=== PATIENT | male | born 1980 | race Caucasian/White ===

== ENCOUNTER 2022-03-04 14:47 | Emergency (ER) | payer BC, SELFPAY ==
[2022-03-04] VITALS (26 sets, daily range): BP systolic 108–133; BP diastolic 50–89; PULSE 54–99; RESP 14–25; TEMP 36.6; O2SAT 97–100
--- NOTE | 2022-03-04 14:47 | ECG_ITS ---
Measurements Intervals [place] Rate: 75 P: 16 RI: 143 QRS: 30 QRSD: 98 T: 51 QT: 401 QTc: 450 Interpretive Statements SINUS RHYTHM NONSPECIFIC T-WAVE ABNORMALITY NO PREVIOUS ECG AVAILABLE FOR COMPARISON Electronically Signed On 03-04-2022 16:53:46 CDT by Sera Hernandez M.D.
[2022-03-04 15:12] LABS: Basophils Absolute Auto 0.1 K/mm3 (0.0-0.1); Basophils Percent Auto 0.4 % (0.2-1.2); Eosinophils Absolute Auto 0.2 K/mm3 (0-0.3); Eosinophils Percent Auto 0.8 % (0-4.4); Hematocrit 54.4 % (42.0-52.0); Hemoglobin 18.2 g/dL (14.0-18.0); Immature Granulocyte Absolute 0.12 K/mm3 (0.00-0.031); Immature Granulocyte Percent A 0.7 % (0-0.5); Lymphocytes Absolute Auto 1.32 K/mm3 (0.9-3.2); Lymphocytes Percent Auto 7.2 % (18.3-44.2); Mean Corpuscular HGB Conc 33.5 g/dl (32-36); Mean Corpuscular Hemoglobin 30.9 pg (26-34); Mean Corpuscular Volume 92.4 fl (80-100); Mean Platelet Volume 10.3 fl (7.4-10.4); Monocytes Absolute Auto 1.4 K/mm3 (0.1-0.6); Monocytes Percent Auto 7.4 % (2.6-8.5); Neutrophils Absolute Auto 15.4 K/mm3 (1.3-6.7); Neutrophils Percent Auto 83.5 % (45.5-73.1); Platelet Count Result 257 k/mm3 (150-375); Red Blood Count 5.89 M/mm3 (4.6-6.20); Red Cell Distribution Width 12.3 % (11.5-14.5); White Blood Count 18.4 K/mm3 (4.5-10.0)
--- NOTE | 2022-03-04 15:13 | PC.NURSE ---
Pt noted to have approx 300 ml of emesis . New bag given to pt and given towel to wipe face. Sister remains at patients side.
[2022-03-04 15:21] LABS: Alanine Aminotransferase 92 U/L (6-50); Alkaline Phosphatase 139 U/L (38-126); Anion Gap 14 mmol/L (8-16); Aspartate Amino Transferase 48 U/L (17-59); Bilirubin,Total 2.5 mg/dL (0.2-1.3); Blood Urea Nitrogen 19 mg/dL (9-20); Calcium 9.5 mg/dL (8.4-10.2); Carbon Dioxide 21 mmol/L (22-30); Chloride 106 mmol/L (98-107); Estimated CRCL calculation 86 ml/min; Estimated Glomerular Filt Rate 56; Glucose 149 mg/dL (65-110); Potassium 4.3 mmol/L (3.4-5.0); Sodium 141 mmol/L (137-145)
[2022-03-04 15:23] LABS: INR 1.1; Prothrombin Time 13.9 Seconds (11.1-14.7)
[2022-03-04] MEDS: ONDANSETRON INJ 4 MG/2 ML VIAL IV PUSH (15:59)
[2022-03-04] MEDS: SODIUM CHLORIDE 0.9% IV 1,000 ML 999 ML IV CONT ×2 (15:59→17:51)
[2022-03-04 18:46] LABS: Influenza A QL RT-PCR Negative (Negative); Influenza B QL RT-PCR Negative (Negative); SARS-CoV-2 RNA PCR Negative
--- NOTE | 2022-03-04 19:48 | ED.GENADULT ---
HPI - General Adult General Chief complaint: Syncope Stated complaint: syncope' Time Seen by Provider: 03/04/22 15:26 History of Present Illness HPI narrative: Patient is a 41-year-old male who presents ER status post syncope. Patient has been having forceful nausea and vomiting as well as diarrhea today. He had 1 episode of loss consciousness while on the toilet. He gets dizzy with standing. Reports he had a similar episode of symptoms 10 days ago. Reports this is what he feels like when he has influenza and is concerned he may have contracted it. No fevers or chills or body aches. No chest pain or chest pressure. No additional concerns. Related Data Allergies Allergy/AdvReac Type Severity Reaction Status Date / Time No Known Allergies Allergy Verified 03/04/22 15:58 Review of Systems Review of Systems: All systems reviewed & are unremarkable except as noted in HPI and below Constitutional: Constitutional: Denies chills, Reports fatigue and Denies fever(s) ENT: Denies nasal congestion and Denies sore throat Cardiovascular: Cardiovascular: Denies chest pain, Denies rapid heart rate and Denies radiating jaw, neck or arm pain Respiratory: Respiratory: Denies cough and Denies dyspnea Gastrointestinal: Gastrointestinal: Denies abdominal pain, Reports diarrhea, Reports nausea and Reports vomiting Neurologic: Reports syncope PMFSH Past Medical History Medical History (Updated 03/04/22 @ 20:23 by Andres Ty MD) Healthy adult male Surgical History Surgical History (Updated 03/04/22 @ 20:23 by Andres Ty MD) No pertinent past surgical history Exam Narrative: GENERAL: Well-appearing, well-nourished, and in no acute distress. HEAD: Normocephalic, atraumatic. EYES: PERRLA and EOMI. ENT: Mucous membranes moist. CHEST: Clear to auscultation. No respiratory distress. HEART: Regular rate and rhythm. Normal peripheral pulses. ABDOMEN: Soft, nontender, nondistended. EXTREMITIES: Normal range of motion. No edema. SKIN: Warm, dry, no rash. NEURO: Alert and oriented x3. PSYCH: Normal mood and affect. Course Course Emergency Course: Patient informed of results. White count felt to be elevated due to retching and diarrhea. Abdomen soft nontender. He has been hydrated with 2 L of fluid. Tolerating oral fluids. Discharge home. Vital Signs Vital signs: Vital Signs Temperature 97.9 F 03/04/22 14:49 Pulse Rate 54 L 03/04/22 14:49 Respiratory Rate 14 03/04/22 14:49 Blood Pressure 129/68 03/04/22 14:49 Pulse Oximetry 98 03/04/22 14:49 Oxygen Delivery Room Air 03/04/22 14:49 Temperature 97.9 F 03/04/22 14:49 Pulse Rate 88 03/04/22 18:44 Respiratory Rate 22 H 03/04/22 18:44 Blood Pressure 125/89 03/04/22 18:44 Pulse Oximetry 100 03/04/22 18:44 Oxygen Delivery Room Air 03/04/22 14:49 Medical Decision Making Vital Signs Vital Signs: Vital Signs Temperature 97.9 F 03/04/22 14:49 Pulse Rate 54 L 03/04/22 14:49 Respiratory Rate 14 03/04/22 14:49 Blood Pressure 129/68 03/04/22 14:49 Pulse Oximetry 98 03/04/22 14:49 Oxygen Delivery Room Air 03/04/22 14:49 Temperature 97.9 F 03/04/22 14:49 Pulse Rate 88 03/04/22 18:44 Respiratory Rate 22 H 03/04/22 18:44 Blood Pressure 125/89 03/04/22 18:44 Pulse Oximetry 100 03/04/22 18:44 Oxygen Delivery Room Air 03/04/22 14:49 Lab Data Result diagrams: 03/04/22 15:02 03/04/22 15:02 Labs: Lab Results 03/04/22 03/04/22 03/04/22 Range/Units 15:02 15:02 15:04 WBC 18.4 H (4.5-10.0) K/mm3 RBC 5.89 (4.6-6.20) M/mm3 Hgb 18.2 H (14.0-18.0) g/dL Hct 54.4 H (42.0-52.0) % MCV 92.4 (80-100) fl MCH 30.9 (26-34) pg MCHC 33.5 (32-36) g/dl RDW 12.3 (11.5-14.5) % Plt Count 257 (150-375) k/mm3 MPV 10.3 (7.4-10.4) fl Immature Gran % (Auto) 0.7 H (0-0.5) % Neut % (Auto) 83.5 H (45.5-73.1
== END 2022-03-04 20:31 | disposition home or self-care (01) ==
PROVIDERS: Emergency Medicine; Emergency Provider Emergency Medicine
DX: K52.9 Noninfective gastroenteritis and colitis, unspecified (principal); Z20.822 Contact with and (suspected) exposure to COVID-19
CPT/HCPCS: 36415; 80053; 85025; 85610; 85730; 87502; 93005; 96361; 96374; 99284; C9803; J2405; J7030; U0003; U0005